=== PATIENT | male | born 1970 | race Two or more races ===

== ENCOUNTER 2017-11-10 10:57 | Emergency (ER) | payer SELFPAY ==
[2017-11-10 11:13] VITALS: BMI 26.2
--- NOTE | 2017-11-10 11:56 | ED PDOC ---
HPI: CCC, URI, Sore Throat Time Seen by Provider: 11/10/17 11:54 Chief Complaint (Nursing): ENT Problem Chief Complaint (Provider): left ear bleeding History Per: Patient (47 y/o male here for evaluation of left ear bleeding. Patient denies any trauma/injury/use of Qtip. States he noted sharp pain today prior to bleeding. ) Past Medical History Reviewed: Historical Data, Nursing Documentation, Vital Signs Vital Signs: Last Vital Signs Temp 98.2 F 11/10/17 11:13 Pulse 79 11/10/17 11:13 Resp 20 11/10/17 11:13 BP 114/59 L 11/10/17 11:13 Pulse Ox 97 11/10/17 11:13 - Family History Family History: States: No Known Family Hx - Home Medications Home Medications: Ambulatory Orders Medication Instructions Recorded Amoxicillin 500 mg PO TID #21 tablet 11/10/17 Neomycin/Polymyxin/Hydrocort 4 drop OS TID #1 bottle 11/10/17 [Cortisporin Opht Susp] - Allergies Allergies/Adverse Reactions: Allergies Allergy/AdvReac Type Severity Reaction Status Date / Time No Known Allergies Allergy Verified 11/10/17 11:35 Review of Systems ROS Statement: Except As Marked, All Systems Reviewed And Found Negative ENT: Positive for: Ear Pain Physical Exam - Reviewed Nursing Documentation Reviewed: Yes Vital Signs Reviewed: Yes - Physical Exam Appears: Positive for: Well, Non-toxic, No Acute Distress Head Exam: Positive for: ATRAUMATIC, NORMAL INSPECTION, NORMOCEPHALIC Skin: Positive for: Normal Color, Warm, DRY Eye Exam: Positive for: EOMI, Normal appearance, PERRL ENT: Negative for: Normal ENT Inspection (moderate blood/pruluent discharge noted in ear canal left. Unable to visualize TM due to amount of blood. Ear dry box tender with cleaning.) Neck: Positive for: Normal, Painless ROM Cardiovascular/Chest: Positive for: Regular Rate, Rhythm Respiratory: Positive for: CNT, Normal Breath Sounds Gastrointestinal/Abdominal: Positive for: Normal Exam, Soft Back: Positive for: Normal Inspection Extremity: Positive for: Normal ROM Neurologic/Psych: Positive for: Alert, Oriented - ECG O2 Sat by Pulse Oximetry: 97 Disposition - Clinical Impression Clinical Impression: Otitis media, purulent, acute, with spontaneous rupture of TM - Patient ED Disposition Is Patient to be Admitted: No - Disposition Referrals: Jordon Khan MD [Staff Provider] - Disposition: Routine/Home Disposition Time: 11:57 Condition: FAIR Prescriptions: Amoxicillin 500 mg PO TID #21 tablet Neomycin/Polymyxin/Hydrocort [Cortisporin Opht Susp] 4 drop OS TID #1 bottle Instructions: Ruptured Eardrum Forms: [facility] (German), [facility] ED School/Work Excuse
[2017-11-10 13:07] VITALS: BP 120/78; PULSE 78; RESP 19; TEMP 97; O2SAT 98
== END 2017-11-10 13:08 | disposition home or self-care (01) ==
LOC: H.ER 10:57
DX: H72.92 Unspecified perforation of tympanic membrane, left ear (principal)